=== PATIENT | male | born 1965 | race Caucasian/White ===

== ENCOUNTER 2017-01-06 19:01 | Emergency (ER) | payer MEDICAID ==
[~2017-01-06] VITALS: Ht 172.7 cm; Wt 87.9 kg
[~2017-01-06 19:01] MED LIST: ARIP10TA33 PO; BENZ2AMP4 PO; DIPH25CA61 PO; DIVA500T2 PO; DIVA500T4 PO; FAMO-79 PO; FLUO10CA13 PO; FLUO20CA19 PO; LURA60TA PO; OLAN10TA3 PO; RISP4TAB34 PO
[2017-01-06] MEDS ORDERED: SODIUM CHLORIDE FLUSH 10ML SYR IVF ONE (19:30)
[2017-01-06] MEDS ORDERED: SODIUM CHLORIDE 0.9% 1,000ML IVBOLUS ONE (19:30)
[2017-01-06 19:32] LABS: HEMATOCRIT 52.4 % (39.2-51.8); HEMOGLOBIN 17.6 g/dL (13.7-18.0); WHITE BLOOD COUNT 8.9 x10^3/uL (3.4-10)
[2017-01-06 19:39] LABS: ASPARTATE AMINO TRANSFERASE 12 U/L (15-37); BLOOD UREA NITROGEN 11 mg/dL (7-18)
[2017-01-06 20:26] LABS: IS PT STATUS REG ER OR PRE ER? YES
[2017-01-06 21:15] VITALS: BP 123/92
== END 2017-01-06 21:39 | disposition home or self-care (01) ==
LOC: ED 21:33
DX: R11.0 Nausea (principal); R53.1 Weakness; F25.9 Schizoaffective disorder, unspecified; F31.9 Bipolar disorder, unspecified; J45.909 Unspecified asthma, uncomplicated; K21.9 Gastro-esophageal reflux disease without esophagitis
CPT/HCPCS: 36415; 74020; 76700; 80053; 81001; 83690; 84484; 85025; 87086; 93005; 96360; 96361; 99285; J7030

== ENCOUNTER 2017-02-07 19:42 | Emergency (ER) | payer MEDICAID ==
[~2017-02-07] VITALS: Ht 172.7 cm; Wt 78.4 kg
[2017-02-07] MEDS ORDERED: ONDANSETRON ODT 4 MG PO ONE (20:00)
[2017-02-07] MEDS ORDERED: PLEASE ENTER HEIGHT AND WEIGHT MC SCH (20:00)
[2017-02-07] MEDS ORDERED: BUSP10TA PO (20:06)
[2017-02-07] MEDS ORDERED: ONDANSETRON ODT 4 MG ONE (20:08)
[2017-02-07 20:31] LABS: HEMATOCRIT 52.8 % (39.2-51.8); HEMOGLOBIN 17.9 g/dL (13.7-18.0); WHITE BLOOD COUNT 7.8 x10^3/uL (3.4-10)
[2017-02-07 20:42] LABS: BLOOD UREA NITROGEN 8 mg/dL (7-18)
[2017-02-07 20:46] LABS: ASPARTATE AMINO TRANSFERASE 23 U/L (15-37)
[2017-02-07 21:41] VITALS: BP 117/88
== END 2017-02-07 21:43 | disposition home or self-care (01) ==
LOC: ED 21:03
DX: N30.90 Cystitis, unspecified without hematuria (principal); R19.7 Diarrhea, unspecified; R11.0 Nausea; M94.0 Chondrocostal junction syndrome [Tietze]; K21.9 Gastro-esophageal reflux disease without esophagitis; J45.909 Unspecified asthma, uncomplicated
CPT/HCPCS: 36415; 71020; 80053; 81001; 83690; 85025; 87086; 93005; 99285; Q0162

== ENCOUNTER 2017-05-29 20:23 | Emergency (ER) | payer MEDICAID ==
[~2017-05-29] VITALS: Ht 172.7 cm; Wt 80.0 kg
[~2017-05-29 20:23] MED LIST changes: +BUSP10TA PO
[2017-05-29 20:48] LABS: BASOPHILS # (AUTO) 0.04 x10^3/uL (0-0.1); BASOPHILS % (AUTO) 0 % (0-1); EOSINOPHILS # (AUTO) 0.04 x10^3/uL (0-0.4); EOSINOPHILS % (AUTO) 0 % (1-7); LYMPHOCYTES # (AUTO) 2.35 x10^3/uL (1-3.4); LYMPHOCYTES % (AUTO) 21 % (22-44); MD NO; MEAN CORPUSCULAR HEMOGLOBIN 32.1 pg (27.5-34.5); MEAN CORPUSCULAR HGB CONC 33.9 g/dL (33.2-36.2); MEAN CORPUSCULAR VOLUME 94.9 fL (81-97); MEAN PLATELET VOLUME 8.7 fL (7.4-10.4); MONOCYTES # (AUTO) 0.68 x10^3/uL (0.2-0.8); MONOCYTES % (AUTO) 6 % (2-9); NEUTROPHILS # (AUTO) 8.21 x10^3/uL (1.8-6.8); NEUTROPHILS % (AUTO) 73 % (42-75); PLATELET COUNT 268 x10^3/uL (130-400); RED BLOOD COUNT 5.05 x10^6/uL (4.38-5.82); RED CELL DISTRIBUTION WIDTH 13.6 % (9.4-14.8)
[2017-05-29 20:51] LABS: MICROSCOPIC AUTO
[2017-05-29 20:52] LABS: CULTURE INDICATED? YES
[2017-05-29 21:00] LABS: ALANINE AMINOTRANSFERASE 19 U/L (12-78); ANION GAP 8 mmol/L (5-15); CALCIUM 8.3 mg/dL (8.5-10.1); CHLORIDE 108 mmol/L (98-107); SALICYLATE LEVEL 3.9 mg/dL (2.8-20.0)
[2017-05-29] MEDS ORDERED: LORazepam 1MG TABLET PO ONE (21:00)
[2017-05-29] MEDS ORDERED: PLEASE ENTER HEIGHT AND WEIGHT MC SCH (21:00)
[2017-05-29 21:02] LABS: ALKALINE PHOSPHATASE 126 U/L (45-117); BILIRUBIN,TOTAL 0.6 mg/dL (0.2-1.0); CREATININE 1.14 mg/dL (0.7-1.3); TOTAL PROTEIN 7.2 g/dL (6.4-8.2)
[2017-05-29 21:02] LABS: AMPHETAMINE SCREEN, URINE Negative (Negative); BARBITURATE SCREEN, URINE Negative (Negative); BENZODIAZEPINE SCREEN, URINE Negative (Negative); CANNABINOID SCREEN, URINE Negative (Negative); COCAINE SCREEN, URINE Negative (Negative); METHADONE SCREEN, URINE Negative (Negative); OPIATE SCREEN, URINE Negative (Negative)
[2017-05-29 21:03] LABS: ACETAMINOPHEN < 2 mcg/mL (10-30)
[2017-05-29] MEDS ORDERED: LORazepam 1MG TABLET ONE (21:06)
[2017-05-29] MEDS ORDERED: CEFDINIR 300 MG CAPSULE ONE (22:52)
[2017-05-29] MEDS ORDERED: CEFDINIR 300 MG CAPSULE PO ONE (23:00)
[2017-05-30] MEDS ORDERED: IBUPROFEN 200 MG TABLET PO ONE (03:00)
[2017-05-30] MEDS ORDERED: DIVALPROEX 500 MG TAB.ER.24H PO ONE (03:00)
[2017-05-30] MEDS ORDERED: OLANZAPINE 10 MG TABLET PO ONE (03:00)
[2017-05-30] MEDS ORDERED: IBUPROFEN 200 MG TABLET ONE (03:15)
[2017-05-30] MEDS ORDERED: FLUO20CA19 PO (03:37)
[2017-05-30] MEDS ORDERED: DIVA500T4 PO (03:37)
[2017-05-30] MEDS ORDERED: BUSP10TA PO (03:37)
[2017-05-30] MEDS ORDERED: ONDANSETRON ODT 4 MG PO PRN (05:30)
[2017-05-30] MEDS ORDERED: OLANZAPINE 10 MG TABLET PO SCH (05:30)
[2017-05-30] MEDS ORDERED: CEFD300C37 PO (07:31)
[2017-05-30] MEDS ORDERED: FLUOXETINE 10 MG CAP ONE (10:16)
[2017-05-30] MEDS ORDERED: CEFDINIR 300 MG CAPSULE ONE ×2 (10:16→21:09)
[2017-05-30] MEDS: FLUOXETINE HCL 20 MG CAPSULE PO SCH (11:28)
[2017-05-30] MEDS: CEFDINIR 300 MG CAPSULE PO SCH ×2 (11:28→21:51)
[2017-05-30] MEDS ORDERED: ACETAMINOPHEN 325 MG TABLET ONE (13:00)
[2017-05-30] MEDS: ACETAMINOPHEN 325 MG TABLET PO PRN (13:01)
[2017-05-30] MEDS: OLANZAPINE 10 MG TABLET PO SCH (18:43)
[2017-05-30] MEDS ORDERED: LORazepam 1MG TABLET ONE (21:09)
[2017-05-30] MEDS ORDERED: LORazepam 1MG TABLET PO PRN (21:30)
[2017-05-30] MEDS: DIVALPROEX 500 MG TAB.ER.24H PO SCH (21:51)
[2017-05-31] MEDS ORDERED: FLUOXETINE HCL 20 MG CAPSULE ONE (07:16)
[2017-05-31] MEDS ORDERED: CEFDINIR 300 MG CAPSULE ONE ×2 (07:16→20:53)
[2017-05-31] MEDS: CEFDINIR 300 MG CAPSULE PO SCH ×2 (08:52→21:29)
[2017-05-31] MEDS: FLUOXETINE HCL 20 MG CAPSULE PO SCH (08:52)
[2017-05-31] MEDS ORDERED: ACETAMINOPHEN 325 MG TABLET ONE (13:15)
[2017-05-31] MEDS: ACETAMINOPHEN 325 MG TABLET PO PRN (13:17)
[2017-05-31] MEDS ORDERED: NICOTINE 14MG/24 HR PATCH.TD24 ONE (15:50)
[2017-05-31] MEDS: NICOTINE 14MG/24 HR PATCH.TD24 TD SCH (16:04)
[2017-05-31] MEDS: DIVALPROEX 500 MG TAB.ER.24H PO SCH (21:29)
[2017-05-31] MEDS: OLANZAPINE 10 MG TABLET PO SCH (21:29)
[2017-06-01] MEDS ORDERED: ACETAMINOPHEN 325 MG TABLET ONE ×3 (00:50→13:12)
[2017-06-01] MEDS: ACETAMINOPHEN 325 MG TABLET PO PRN ×2 (00:53→13:16)
[2017-06-01] MEDS ORDERED: FLUOXETINE HCL 20 MG CAPSULE ONE (08:46)
[2017-06-01] MEDS ORDERED: CEFDINIR 300 MG CAPSULE ONE ×2 (08:46→20:59)
[2017-06-01] MEDS: CEFDINIR 300 MG CAPSULE PO SCH ×2 (08:53→21:46)
[2017-06-01] MEDS: FLUOXETINE HCL 20 MG CAPSULE PO SCH (08:53)
[2017-06-01] MEDS ORDERED: NICOTINE 14MG/24 HR PATCH.TD24 ONE (14:56)
[2017-06-01] MEDS: NICOTINE 14MG/24 HR PATCH.TD24 TD SCH (15:10)
[2017-06-01] MEDS: OLANZAPINE 10 MG TABLET PO SCH (21:46)
[2017-06-01] MEDS: DIVALPROEX 500 MG TAB.ER.24H PO SCH (21:46)
[2017-06-02] MEDS ORDERED: ACETAMINOPHEN 325 MG TABLET ONE (00:12)
[2017-06-02] MEDS: ACETAMINOPHEN 325 MG TABLET PO PRN (00:14)
[2017-06-02] MEDS ORDERED: NICOTINE 14MG/24 HR PATCH.TD24 ONE (14:39)
[2017-06-02] MEDS ORDERED: CEFDINIR 300 MG CAPSULE ONE (14:39)
[2017-06-02] MEDS ORDERED: FLUOXETINE HCL 20 MG CAPSULE ONE (14:39)
[2017-06-02] MEDS: FLUOXETINE HCL 20 MG CAPSULE PO SCH (14:44)
[2017-06-02] MEDS: CEFDINIR 300 MG CAPSULE PO SCH (14:44)
[2017-06-02] MEDS: NICOTINE 14MG/24 HR PATCH.TD24 TD SCH (14:45)
[2017-06-02 15:52] VITALS: BP 108/65
[2017-06-02] MEDS ORDERED: CEFD300C37 PO (16:44)
== END 2017-06-02 15:54 | disposition home or self-care (01) ==
LOC: ED 21:13 → EDIP 05-30 02:17 → UNDOADMOB 05-30 02:17 → ED 06-02 15:54
DX: F20.0 Paranoid schizophrenia (principal); F31.9 Bipolar disorder, unspecified; F10.20 Alcohol dependence, uncomplicated; K21.9 Gastro-esophageal reflux disease without esophagitis; J45.909 Unspecified asthma, uncomplicated
CPT/HCPCS: 36415; 80053; 80307; 80329; 81001; 85025; 87086; 99284; G0480

== ENCOUNTER 2017-12-05 16:10 | Emergency (ER) | payer MEDICAID ==
[~2017-12-05] VITALS: Ht 172.7 cm; Wt 80.0 kg
[~2017-12-05 16:10] MED LIST changes: +CEFD300C37 PO
[2017-12-05 16:13] VITALS: BP 129/94
== END 2017-12-05 17:40 | disposition home or self-care (01) ==
LOC: ED 17:34
DX: F25.9 Schizoaffective disorder, unspecified (principal); F31.9 Bipolar disorder, unspecified; K21.9 Gastro-esophageal reflux disease without esophagitis; F10.20 Alcohol dependence, uncomplicated; J45.909 Unspecified asthma, uncomplicated; F17.200 Nicotine dependence, unspecified, uncomplicated; Z76.0 Encounter for issue of repeat prescription; Z72.89 Other problems related to lifestyle
CPT/HCPCS: 99283

== ENCOUNTER 2017-12-22 12:19 | Emergency (ER) | payer MEDICAID | END 2017-12-22 12:38 | disposition left against medical advice (07) | LOC: ED 12:32 | DX: Z53.21 Procedure and treatment not carried out due to patient leaving prior to being seen by health care provider (principal) ==

== ENCOUNTER 2017-12-31 11:00 | Inpatient (IN) | payer MEDICAID ==
[~2017-12-31] VITALS: Ht 172.7 cm; Wt 75.1 kg
[2017-12-31] MEDS ORDERED: SODIUM CHLORIDE 0.9% 1,000 ML IV ONE (11:09)
[2017-12-31] MEDS ORDERED: PANTOPRAZOLE 80 MG in SODIUM CHLORIDE 0.9% 50 ML IVPB ONE (11:09)
[2017-12-31 11:29] LABS: BASOPHILS # (AUTO) 0.06 x10^3/uL (0-0.1); BASOPHILS % (AUTO) 1 % (0-1); EOSINOPHILS # (AUTO) 0.04 x10^3/uL (0-0.4); EOSINOPHILS % (AUTO) 0 % (1-7); LYMPHOCYTES # (AUTO) 1.61 x10^3/uL (1-3.4); LYMPHOCYTES % (AUTO) 14 % (22-44); MD NO; MEAN CORPUSCULAR HEMOGLOBIN 33.3 pg (27.5-34.5); MEAN CORPUSCULAR HGB CONC 34.7 g/dL (33.2-36.2); MEAN CORPUSCULAR VOLUME 95.9 fL (81-97); MEAN PLATELET VOLUME 9.5 fL (7.4-10.4); MONOCYTES # (AUTO) 0.39 x10^3/uL (0.2-0.8); MONOCYTES % (AUTO) 4 % (2-9); NEUTROPHILS # (AUTO) 9.11 x10^3/uL (1.8-6.8); NEUTROPHILS % (AUTO) 81 % (42-75); PLATELET COUNT 319 x10^3/uL (130-400); RED BLOOD COUNT 3.21 x10^6/uL (4.38-5.82); RED CELL DISTRIBUTION WIDTH 14.3 % (9.4-14.8)
[2017-12-31] MEDS ORDERED: SODIUM CHLORIDE FLUSH 10ML SYR IVF ONE (11:30)
[2017-12-31] MEDS ORDERED: PLEASE ENTER HEIGHT AND WEIGHT MC SCH (11:30)
[2017-12-31 11:37] LABS: INTERNATIONAL NORMALIZED RATIO 1.08 (0.93-1.1); PROTHROMBIN TIME 11.2 Seconds (9.6-11.5)
[2017-12-31 11:56] LABS: ALANINE AMINOTRANSFERASE 17 U/L (12-78); ALBUMIN 2.9 g/dL (3.4-5.0); ANION GAP 11 mmol/L (5-15); CHLORIDE 106 mmol/L (98-107); CREATININE 1.03 mg/dL (0.7-1.3)
[2017-12-31 11:58] LABS: ALKALINE PHOSPHATASE 100 U/L (45-117); BILIRUBIN,TOTAL 0.4 mg/dL (0.2-1.0)
[2017-12-31] MEDS ORDERED: LURA60TA PO (12:08)
[2017-12-31] MEDS: PANTOPRAZOLE 80 MG in SODIUM CHLORIDE 0.9% 100 ML IV SCH ×2 (12:15→16:04)
[2017-12-31] MEDS ORDERED: ONDANSETRON 2MG/ML, 2ML IVPush PRN (12:30)
[2017-12-31] MEDS ORDERED: ONDANSETRON ODT 4 MG PO PRN (12:30)
[2017-12-31] MEDS ORDERED: LABETALOL 5MG/ML, 20ML IVPush PRN (12:30)
[2017-12-31] MEDS ORDERED: NICOTINE 7 MG/24 HR PATCH.TD24 TD SCH (12:30)
[2017-12-31] MEDS ORDERED: hydrALAzine 20 MG/ML, 1ML IVPush PRN (12:30)
[2017-12-31 14:33] VITALS: BP 115/73
[2017-12-31] MEDS: SODIUM CHLORIDE 0.9% 1,000 ML IV SCH (16:10)
[2017-12-31 18:35] VITALS: BP 108/77
[2017-12-31] MEDS ORDERED: DIVALPROEX 500 MG TAB.ER.24H PO SCH (21:00)
[2017-12-31] MEDS ORDERED: LURASIDONE 20 MG TABLET PO SCH (21:00)
[2018-01-01] MEDS: SODIUM CHLORIDE 0.9% 1,000 ML IV SCH (01:43)
[2018-01-01 02:19] VITALS: BP 100/57
[2018-01-01 05:25] LABS: BASOPHILS # (AUTO) 0.04 x10^3/uL (0-0.1); BASOPHILS % (AUTO) 1 % (0-1); EOSINOPHILS # (AUTO) 0.11 x10^3/uL (0-0.4); EOSINOPHILS % (AUTO) 1 % (1-7); LYMPHOCYTES # (AUTO) 2.94 x10^3/uL (1-3.4); LYMPHOCYTES % (AUTO) 36 % (22-44); MD NO; MEAN CORPUSCULAR HEMOGLOBIN 33.1 pg (27.5-34.5); MEAN CORPUSCULAR HGB CONC 34.1 g/dL (33.2-36.2); MEAN CORPUSCULAR VOLUME 97.1 fL (81-97); MEAN PLATELET VOLUME 9.7 fL (7.4-10.4); MONOCYTES # (AUTO) 0.36 x10^3/uL (0.2-0.8); MONOCYTES % (AUTO) 4 % (2-9); NEUTROPHILS # (AUTO) 4.82 x10^3/uL (1.8-6.8); NEUTROPHILS % (AUTO) 58 % (42-75); PLATELET COUNT 267 x10^3/uL (130-400); RED BLOOD COUNT 2.69 x10^6/uL (4.38-5.82); RED CELL DISTRIBUTION WIDTH 14.2 % (9.4-14.8)
[2018-01-01 05:30] LABS: CHLORIDE 110 mmol/L (98-107)
[2018-01-01 05:45] LABS: ALANINE AMINOTRANSFERASE 12 U/L (12-78); ALBUMIN 2.5 g/dL (3.4-5.0); ALKALINE PHOSPHATASE 83 U/L (45-117); ANION GAP 10 mmol/L (5-15); BILIRUBIN,TOTAL 0.2 mg/dL (0.2-1.0); TOTAL PROTEIN 5.2 g/dL (6.4-8.2)
[2018-01-01] MEDS ORDERED: PANTOPRAZOLE 40 MG IV IVPush SCH (07:00)
[2018-01-01 07:26] VITALS: BP 94/57
[2018-01-01] MEDS ORDERED: FLUOXETINE HCL 20 MG CAPSULE PO SCH (09:00)
== END 2018-01-01 10:16 | disposition left against medical advice (07) | DRG 378 ==
LOC: ED 11:04 → EDIP 12:17 → 3NE 13:04
PROVIDERS: ADMIT Hospitalist; ATTEND Hospitalist
DX: K92.2 Gastrointestinal hemorrhage, unspecified (principal); E44.0 Moderate protein-calorie malnutrition; R71.0 Precipitous drop in hematocrit; I95.9 Hypotension, unspecified; D72.829 Elevated white blood cell count, unspecified; Z68.25 Body mass index [BMI] 25.0-25.9, adult; F32.9 Major depressive disorder, single episode, unspecified; K59.00 Constipation, unspecified; F17.200 Nicotine dependence, unspecified, uncomplicated; Z53.21 Procedure and treatment not carried out due to patient leaving prior to being seen by health care provider; F25.9 Schizoaffective disorder, unspecified; Z60.2 Problems related to living alone; Z88.8 Allergy status to other drugs, medicaments and biological substances; Z88.1 Allergy status to other antibiotic agents; Z83.3 Family history of diabetes mellitus; Z80.2 Family history of malignant neoplasm of other respiratory and intrathoracic organs; Z81.8 Family history of other mental and behavioral disorders
CPT/HCPCS: 36415; 80053; 85014; 85018; 85025; 85610; 86850; 86900; 96374; G0378; C9113; J7030

== ENCOUNTER 2018-01-01 20:40 | Inpatient (IN) | payer MEDICAID ==
[~2018-01-01] VITALS: Ht 172.7 cm; Wt 79.0 kg
[2018-01-01] MEDS ORDERED: SODIUM CHLORIDE 0.9% 1,000 ML IV ONE (21:10)
[2018-01-01] MEDS ORDERED: PANTOPRAZOLE 80 MG in SODIUM CHLORIDE 0.9% 100 ML IV SCH (21:17)
[2018-01-01] MEDS ORDERED: PANTOPRAZOLE 40 MG IV ONE (21:20)
[2018-01-01 21:23] LABS: MEAN CORPUSCULAR HEMOGLOBIN 32.5 pg (27.5-34.5); MEAN CORPUSCULAR VOLUME 95.3 fL (81-97); MEAN PLATELET VOLUME 9.3 fL (7.4-10.4); PLATELET COUNT 314 x10^3/uL (130-400); RED BLOOD COUNT 2.66 x10^6/uL (4.38-5.82); RED CELL DISTRIBUTION WIDTH 14.5 % (9.4-14.8)
[2018-01-01] MEDS ORDERED: PANTOPRAZOLE 40 MG IV IVPush ONE (21:30)
[2018-01-01] MEDS ORDERED: SODIUM CHLORIDE FLUSH 10ML SYR IVF ONE (21:30)
[2018-01-01 21:34] LABS: INTERNATIONAL NORMALIZED RATIO 1.01 (0.93-1.1); PROTHROMBIN TIME 10.5 Seconds (9.6-11.5)
[2018-01-01 21:36] LABS: ALANINE AMINOTRANSFERASE 12 U/L (12-78); ALBUMIN 2.8 g/dL (3.4-5.0); ANION GAP 6 mmol/L (5-15); CALCIUM 8.1 mg/dL (8.5-10.1); CHLORIDE 111 mmol/L (98-107); CREATININE 0.99 mg/dL (0.7-1.3)
[2018-01-01 21:38] LABS: ALKALINE PHOSPHATASE 95 U/L (45-117); BILIRUBIN,TOTAL 0.2 mg/dL (0.2-1.0); TOTAL PROTEIN 5.7 g/dL (6.4-8.2)
[2018-01-01 21:46] LABS: BASOPHILS # (AUTO) 0.04 x10^3/uL (0-0.1); BASOPHILS % (AUTO) 1 % (0-1); EOSINOPHILS # (AUTO) 0.14 x10^3/uL (0-0.4); EOSINOPHILS % (AUTO) 2 % (1-7); LYMPHOCYTES # (AUTO) 2.74 x10^3/uL (1-3.4); LYMPHOCYTES % (AUTO) 33 % (22-44); MD SCAN; MONOCYTES # (AUTO) 0.33 x10^3/uL (0.2-0.8); MONOCYTES % (AUTO) 4 % (2-9); NEUTROPHILS % (AUTO) 61 % (42-75)
[2018-01-01] MEDS ORDERED: OMNIPAQUE 350 MG/ML, 100ML BOTTLE ONE (22:05)
[2018-01-01] MEDS ORDERED: SODIUM CHLORIDE 0.9% 1,000ML IVBOLUS ONE (22:30)
[2018-01-01 22:43] VITALS: BP 75/49
[2018-01-01 22:49] VITALS: BP 62/37
[2018-01-01] MEDS ORDERED: ZIPRASIDONE 20 MG INJ IM ONE ×2 (22:54→23:00)
[2018-01-01 22:56] VITALS: BP 81/49
[2018-01-01 23:55] VITALS: BP 80/51
[2018-01-01] MEDS ORDERED: SODIUM CHLORIDE 0.9% 1,000 ML IV SCH (23:59)
[2018-01-02] VITALS: BP 89/64
[2018-01-02 00:05] VITALS: BP 87/62
[2018-01-02 02:34] VITALS: BP 86/51
[2018-01-02] MEDS ORDERED: SODIUM CHLORIDE 0.9% 1,000ML IVBOLUS ONE (03:00)
[2018-01-02 04:00] VITALS: BP 107/71
[2018-01-02 04:32] LABS: ANION GAP 6 mmol/L (5-15); CALCIUM 6.8 mg/dL (8.5-10.1); CHLORIDE 118 mmol/L (98-107)
[2018-01-02 04:38] LABS: BASOPHILS # (AUTO) 0.04 x10^3/uL (0-0.1); BASOPHILS % (AUTO) 1 % (0-1); EOSINOPHILS # (AUTO) 0.11 x10^3/uL (0-0.4); EOSINOPHILS % (AUTO) 2 % (1-7); LYMPHOCYTES # (AUTO) 2.73 x10^3/uL (1-3.4); LYMPHOCYTES % (AUTO) 49 % (22-44); MD NO; MEAN CORPUSCULAR HEMOGLOBIN 31.4 pg (27.5-34.5); MEAN CORPUSCULAR HGB CONC 33.4 g/dL (33.2-36.2); MEAN CORPUSCULAR VOLUME 94.2 fL (81-97); MEAN PLATELET VOLUME 9.6 fL (7.4-10.4); MONOCYTES # (AUTO) 0.24 x10^3/uL (0.2-0.8); MONOCYTES % (AUTO) 4 % (2-9); NEUTROPHILS % (AUTO) 44 % (42-75); PLATELET COUNT 222 x10^3/uL (130-400); RED BLOOD COUNT 2.92 x10^6/uL (4.38-5.82); RED CELL DISTRIBUTION WIDTH 16.6 % (9.4-14.8)
[2018-01-02] MEDS ORDERED: PANTOPRAZOLE 80 MG in SODIUM CHLORIDE 0.9% 100 ML IV SCH (05:30)
[2018-01-02] MEDS ORDERED: ALBUTEROL SULFATE 2.5 MG/3 ML ONE (05:38)
[2018-01-02] MEDS ORDERED: ALBUTEROL SULFATE 2.5 MG/3 ML NPPB PRN (06:00)
[2018-01-02 09:08] VITALS: BP 122/81
== END 2018-01-02 11:55 | disposition left against medical advice (07) | DRG 377 ==
LOC: ED 21:30 → EDIP 23:49 → CCU 01-02 00:46 → 4WST 01-02 08:52
PROVIDERS: ADMIT Hospitalist; ATTEND Hospitalist
PROC: 30233N1 Transfusion of Nonautologous Red Blood Cells into Peripheral Vein, Percutaneous Approach (ICD-10-PCS; principal; 2018-01-01)
DX: K92.2 Gastrointestinal hemorrhage, unspecified (principal); E43 Unspecified severe protein-calorie malnutrition; D62 Acute posthemorrhagic anemia; Z68.26 Body mass index [BMI] 26.0-26.9, adult; F25.9 Schizoaffective disorder, unspecified; F31.9 Bipolar disorder, unspecified; K21.9 Gastro-esophageal reflux disease without esophagitis; F17.210 Nicotine dependence, cigarettes, uncomplicated; Z53.21 Procedure and treatment not carried out due to patient leaving prior to being seen by health care provider; Z88.8 Allergy status to other drugs, medicaments and biological substances
CPT/HCPCS: 36415; 99291; J7613; 36430; 74177; 80048; 80053; 83690; 85025; 85610; 85730; 86850; 86900; 86923; 87081; 93005; 96361; 96372; 96374; J3486; Q9967; C9113; J7030; P9016

== ENCOUNTER 2018-01-03 04:38 | Emergency (ER) | payer MEDICAID ==
[~2018-01-03] VITALS: Ht 172.7 cm; Wt 75.0 kg
[2018-01-03 05:50] VITALS: BP 118/76
[2018-01-03 05:52] LABS: ALANINE AMINOTRANSFERASE 13 U/L (12-78); ANION GAP 9 mmol/L (5-15); CALCIUM 8.1 mg/dL (8.5-10.1); CHLORIDE 109 mmol/L (98-107); CREATININE 0.94 mg/dL (0.7-1.3)
[2018-01-03 05:54] LABS: ALKALINE PHOSPHATASE 96 U/L (45-117); BILIRUBIN,TOTAL 0.5 mg/dL (0.2-1.0); TOTAL PROTEIN 5.8 g/dL (6.4-8.2)
[2018-01-03 06:06] LABS: BASOPHILS # (AUTO) 0.04 x10^3/uL (0-0.1); BASOPHILS % (AUTO) 1 % (0-1); EOSINOPHILS # (AUTO) 0.11 x10^3/uL (0-0.4); EOSINOPHILS % (AUTO) 2 % (1-7); LYMPHOCYTES # (AUTO) 1.99 x10^3/uL (1-3.4); LYMPHOCYTES % (AUTO) 32 % (22-44); MD NO; MEAN CORPUSCULAR HEMOGLOBIN 31.6 pg (27.5-34.5); MEAN CORPUSCULAR HGB CONC 33.9 g/dL (33.2-36.2); MEAN CORPUSCULAR VOLUME 93.2 fL (81-97); MEAN PLATELET VOLUME 9.7 fL (7.4-10.4); MONOCYTES # (AUTO) 0.32 x10^3/uL (0.2-0.8); MONOCYTES % (AUTO) 5 % (2-9); NEUTROPHILS # (AUTO) 3.69 x10^3/uL (1.8-6.8); NEUTROPHILS % (AUTO) 60 % (42-75); PLATELET COUNT 295 x10^3/uL (130-400); RED BLOOD COUNT 3.32 x10^6/uL (4.38-5.82); RED CELL DISTRIBUTION WIDTH 16.9 % (9.4-14.8)
== END 2018-01-03 06:29 | disposition home or self-care (01) ==
LOC: ED 05:29
DX: R10.11 Right upper quadrant pain (principal)
CPT/HCPCS: 36415; 80053; 83690; 85025; 86850; 86900; 93005; 99285

== ENCOUNTER 2018-01-17 18:47 | Emergency (ER) | payer MEDICAID ==
[~2018-01-17] VITALS: Ht 172.7 cm; Wt 76.0 kg
[2018-01-17 19:39] LABS: BASOPHILS # (AUTO) 0.07 x10^3/uL (0-0.1); BASOPHILS % (AUTO) 1 % (0-1); EOSINOPHILS # (AUTO) 0.12 x10^3/uL (0-0.4); EOSINOPHILS % (AUTO) 1 % (1-7); LYMPHOCYTES # (AUTO) 2.91 x10^3/uL (1-3.4); LYMPHOCYTES % (AUTO) 30 % (22-44); MD NO; MEAN CORPUSCULAR HEMOGLOBIN 32.2 pg (27.5-34.5); MEAN CORPUSCULAR HGB CONC 33.8 g/dL (33.2-36.2); MEAN CORPUSCULAR VOLUME 95.3 fL (81-97); MEAN PLATELET VOLUME 9.1 fL (7.4-10.4); MONOCYTES # (AUTO) 0.86 x10^3/uL (0.2-0.8); MONOCYTES % (AUTO) 9 % (2-9); NEUTROPHILS # (AUTO) 5.71 x10^3/uL (1.8-6.8); NEUTROPHILS % (AUTO) 59 % (42-75); PLATELET COUNT 329 x10^3/uL (130-400); RED BLOOD COUNT 3.97 x10^6/uL (4.38-5.82); RED CELL DISTRIBUTION WIDTH 16.3 % (9.4-14.8)
[2018-01-17 19:47] LABS: ALBUMIN 3.2 g/dL (3.4-5.0); ANION GAP 9 mmol/L (5-15); CALCIUM 8.4 mg/dL (8.5-10.1); CHLORIDE 106 mmol/L (98-107)
[2018-01-17 19:50] LABS: ALANINE AMINOTRANSFERASE 13 U/L (12-78); ALKALINE PHOSPHATASE 127 U/L (45-117); BILIRUBIN,TOTAL 0.3 mg/dL (0.2-1.0); CREATININE 1.14 mg/dL (0.7-1.3); TOTAL PROTEIN 6.7 g/dL (6.4-8.2)
[2018-01-17 20:17] VITALS: BP 111/68
== END 2018-01-17 20:47 | disposition home or self-care (01) ==
LOC: ED 19:27
DX: R10.11 Right upper quadrant pain (principal); R10.13 Epigastric pain; R10.12 Left upper quadrant pain; F31.9 Bipolar disorder, unspecified; F10.20 Alcohol dependence, uncomplicated; K21.9 Gastro-esophageal reflux disease without esophagitis; J45.909 Unspecified asthma, uncomplicated; F25.9 Schizoaffective disorder, unspecified
CPT/HCPCS: 36415; 80053; 83690; 85025; 86677; 99284

== ENCOUNTER 2018-01-20 20:44 | Emergency (ER) | payer MEDICAID ==
[~2018-01-20] VITALS: Ht 172.7 cm; Wt 75.0 kg
[2018-01-20 21:51] LABS: BASOPHILS % (AUTO) 1 % (0-1); EOSINOPHILS # (AUTO) 0.13 x10^3/uL (0-0.4); EOSINOPHILS % (AUTO) 2 % (1-7); LYMPHOCYTES # (AUTO) 3.15 x10^3/uL (1-3.4); LYMPHOCYTES % (AUTO) 35 % (22-44); MD NO; MEAN CORPUSCULAR HGB CONC 33.5 g/dL (33.2-36.2); MEAN CORPUSCULAR VOLUME 95.4 fL (81-97); MEAN PLATELET VOLUME 9.1 fL (7.4-10.4); MONOCYTES # (AUTO) 0.68 x10^3/uL (0.2-0.8); MONOCYTES % (AUTO) 8 % (2-9); NEUTROPHILS # (AUTO) 4.91 x10^3/uL (1.8-6.8); NEUTROPHILS % (AUTO) 55 % (42-75); PLATELET COUNT 305 x10^3/uL (130-400); RED BLOOD COUNT 4.17 x10^6/uL (4.38-5.82); RED CELL DISTRIBUTION WIDTH 15.4 % (9.4-14.8)
[2018-01-20 21:58] LABS: CULTURE INDICATED? YES; MICROSCOPIC INDICATED
[2018-01-20 22:02] LABS: ALANINE AMINOTRANSFERASE 14 U/L (12-78); ANION GAP 9 mmol/L (5-15); CALCIUM 8.6 mg/dL (8.5-10.1); CHLORIDE 105 mmol/L (98-107); CREATININE 1.23 mg/dL (0.7-1.3); SALICYLATE LEVEL 2.5 mg/dL (2.8-20.0)
[2018-01-20 22:04] LABS: ACETAMINOPHEN < 2 mcg/mL (10-30); ALKALINE PHOSPHATASE 131 U/L (45-117); BILIRUBIN,TOTAL 0.3 mg/dL (0.2-1.0); TOTAL PROTEIN 6.8 g/dL (6.4-8.2)
[2018-01-20 22:09] LABS: AMPHETAMINE SCREEN, URINE Negative (Negative); BARBITURATE SCREEN, URINE Negative (Negative); CANNABINOID SCREEN, URINE Negative (Negative)
[2018-01-20 22:11] LABS: BENZODIAZEPINE SCREEN, URINE Negative (Negative); COCAINE SCREEN, URINE Negative (Negative); METHADONE SCREEN, URINE Negative (Negative); OPIATE SCREEN, URINE Negative (Negative)
[2018-01-20 22:45] VITALS: BP 96/65
== END 2018-01-20 23:01 | disposition home or self-care (01) ==
LOC: ED 21:44
DX: K27.3 Acute peptic ulcer, site unspecified, without hemorrhage or perforation (principal); R10.12 Left upper quadrant pain; K21.9 Gastro-esophageal reflux disease without esophagitis; F17.210 Nicotine dependence, cigarettes, uncomplicated
CPT/HCPCS: 36415; 80053; 80307; 80329; 81001; 83690; 85025; 87086; 99284; G0480

== ENCOUNTER 2018-02-16 16:10 | Emergency (ER) | payer MEDICAID ==
[~2018-02-16] VITALS: Ht 172.7 cm; Wt 75.0 kg
[2018-02-16] MEDS ORDERED: SODIUM CHLORIDE FLUSH 10ML SYR IVF ONE (16:30)
[2018-02-16] MEDS ORDERED: METOCLOPRAMIDE 5 MG/ML, 2ML IVPush ONE (16:30)
[2018-02-16] MEDS ORDERED: METOCLOPRAMIDE 5 MG/ML, 2ML ONE (16:30)
[2018-02-16] MEDS ORDERED: MORPHINE SULFATE 4 MG/ML, 1ML ONE (16:40)
[2018-02-16 16:55] LABS: BASOPHILS # (AUTO) 0.05 x10^3/uL (0-0.1); BASOPHILS % (AUTO) 1 % (0-1); EOSINOPHILS # (AUTO) 0.03 x10^3/uL (0-0.4); EOSINOPHILS % (AUTO) 0 % (1-7); LYMPHOCYTES # (AUTO) 2.78 x10^3/uL (1-3.4); LYMPHOCYTES % (AUTO) 28 % (22-44); MD NO; MEAN CORPUSCULAR HEMOGLOBIN 31.5 pg (27.5-34.5); MEAN CORPUSCULAR HGB CONC 33.7 g/dL (33.2-36.2); MEAN CORPUSCULAR VOLUME 93.4 fL (81-97); MEAN PLATELET VOLUME 8.6 fL (7.4-10.4); MONOCYTES # (AUTO) 0.77 x10^3/uL (0.2-0.8); MONOCYTES % (AUTO) 8 % (2-9); NEUTROPHILS # (AUTO) 6.35 x10^3/uL (1.8-6.8); NEUTROPHILS % (AUTO) 64 % (42-75); PLATELET COUNT 295 x10^3/uL (130-400); RED BLOOD COUNT 4.63 x10^6/uL (4.38-5.82); RED CELL DISTRIBUTION WIDTH 14.7 % (9.4-14.8)
[2018-02-16] MEDS ORDERED: MORPHINE SULFATE 4 MG/ML, 1ML IVPush PRN (17:00)
[2018-02-16 17:03] LABS: ALANINE AMINOTRANSFERASE 17 U/L (12-78); ALBUMIN 3.6 g/dL (3.4-5.0); ANION GAP 10 mmol/L (5-15); CHLORIDE 103 mmol/L (98-107); CREATININE 1.14 mg/dL (0.7-1.3)
[2018-02-16 17:06] LABS: ALKALINE PHOSPHATASE 94 U/L (45-117); BILIRUBIN,TOTAL 0.4 mg/dL (0.2-1.0); TOTAL PROTEIN 7.2 g/dL (6.4-8.2)
[2018-02-16] MEDS ORDERED: ALBU8.5H8 INH (17:08)
[2018-02-16 17:41] LABS: CULTURE INDICATED? NO; MICROSCOPIC NOT IND
[2018-02-16] MEDS ORDERED: OMNIPAQUE 350 MG/ML, 100ML BOTTLE ONE (17:41)
[2018-02-16 18:40] VITALS: BP 106/72
== END 2018-02-16 18:44 | disposition home or self-care (01) ==
LOC: ED 18:05
DX: R10.13 Epigastric pain (principal); R11.0 Nausea; F20.9 Schizophrenia, unspecified; F31.9 Bipolar disorder, unspecified; K21.9 Gastro-esophageal reflux disease without esophagitis; J45.909 Unspecified asthma, uncomplicated; F17.210 Nicotine dependence, cigarettes, uncomplicated
CPT/HCPCS: 36415; 74177; 80053; 81003; 83690; 85025; 96374; 96375; 99285; J2765; Q9967

== ENCOUNTER 2018-03-08 16:30 | Emergency (ER) | payer MEDICAID ==
[~2018-03-08] VITALS: Ht 172.7 cm; Wt 75.0 kg
[~2018-03-08 16:30] MED LIST changes: +ALBU8.5H8 INH
[2018-03-08 17:21] LABS: BASOPHILS # (AUTO) 0.07 x10^3/uL (0-0.1); BASOPHILS % (AUTO) 1 % (0-1); EOSINOPHILS # (AUTO) 0.15 x10^3/uL (0-0.4); EOSINOPHILS % (AUTO) 2 % (1-7); LYMPHOCYTES # (AUTO) 2.66 x10^3/uL (1-3.4); LYMPHOCYTES % (AUTO) 40 % (22-44); MD NO; MEAN CORPUSCULAR HEMOGLOBIN 31.8 pg (27.5-34.5); MEAN CORPUSCULAR HGB CONC 33.9 g/dL (33.2-36.2); MEAN PLATELET VOLUME 9.5 fL (7.4-10.4); MONOCYTES # (AUTO) 0.49 x10^3/uL (0.2-0.8); MONOCYTES % (AUTO) 7 % (2-9); NEUTROPHILS # (AUTO) 3.26 x10^3/uL (1.8-6.8); NEUTROPHILS % (AUTO) 49 % (42-75); PLATELET COUNT 227 x10^3/uL (130-400); RED CELL DISTRIBUTION WIDTH 13.9 % (9.4-14.8)
[2018-03-08 17:25] LABS: INTERNATIONAL NORMALIZED RATIO 1.04 (0.93-1.1)
[2018-03-08 17:28] LABS: ALANINE AMINOTRANSFERASE 20 U/L (12-78); ALBUMIN 3.4 g/dL (3.4-5.0); ANION GAP 9 mmol/L (5-15); CALCIUM 8.7 mg/dL (8.5-10.1); CHLORIDE 104 mmol/L (98-107); CREATININE 1.23 mg/dL (0.7-1.3)
[2018-03-08 17:30] LABS: ALKALINE PHOSPHATASE 88 U/L (45-117); BILIRUBIN,TOTAL 0.2 mg/dL (0.2-1.0); TOTAL PROTEIN 6.8 g/dL (6.4-8.2)
[2018-03-08 18:30] VITALS: BP 108/63
== END 2018-03-08 18:33 | disposition home or self-care (01) ==
LOC: ED 16:37
DX: R10.13 Epigastric pain (principal); K21.9 Gastro-esophageal reflux disease without esophagitis; F17.200 Nicotine dependence, unspecified, uncomplicated; J45.909 Unspecified asthma, uncomplicated
CPT/HCPCS: 36415; 74021; 80053; 85025; 85610; 99284

== ENCOUNTER 2018-05-12 11:09 | Emergency (ER) | payer MEDICAID ==
[~2018-05-12] VITALS: Ht 172.7 cm; Wt 71.8 kg
[2018-05-12] MEDS ORDERED: MAALOX/HYOSCYAMINE/LIDOCAINE 45 ML BTL ONE (11:43)
[2018-05-12 11:55] LABS: BASOPHILS # (AUTO) 0.05 x10^3/uL (0-0.1); BASOPHILS % (AUTO) 1 % (0-1); EOSINOPHILS # (AUTO) 0.05 x10^3/uL (0-0.4); EOSINOPHILS % (AUTO) 1 % (1-7); LYMPHOCYTES # (AUTO) 2.26 x10^3/uL (1-3.4); LYMPHOCYTES % (AUTO) 27 % (22-44); MD NO; MEAN CORPUSCULAR HEMOGLOBIN 32.1 pg (27.5-34.5); MEAN CORPUSCULAR HGB CONC 34.3 g/dL (33.2-36.2); MEAN CORPUSCULAR VOLUME 93.6 fL (81-97); MEAN PLATELET VOLUME 8.1 fL (7.4-10.4); MONOCYTES % (AUTO) 7 % (2-9); NEUTROPHILS # (AUTO) 5.35 x10^3/uL (1.8-6.8); NEUTROPHILS % (AUTO) 64 % (42-75); PLATELET COUNT 251 x10^3/uL (130-400); RED BLOOD COUNT 4.83 x10^6/uL (4.38-5.82); RED CELL DISTRIBUTION WIDTH 15.2 % (9.4-14.8)
[2018-05-12] MEDS ORDERED: MAALOX/HYOSCYAMINE/LIDOCAINE 45 ML BTL PO ONE (12:00)
[2018-05-12 12:06] LABS: ALANINE AMINOTRANSFERASE 61 U/L (12-78); ALBUMIN 3.5 g/dL (3.4-5.0); ANION GAP 6 mmol/L (5-15); CHLORIDE 104 mmol/L (98-107); CREATININE 1.42 mg/dL (0.7-1.3)
[2018-05-12 12:08] LABS: ALKALINE PHOSPHATASE 113 U/L (45-117); BILIRUBIN,TOTAL 0.5 mg/dL (0.2-1.0)
[2018-05-12 13:30] VITALS: BP 141/89
[2018-05-12 13:47] LABS: MICROSCOPIC NOT IND
[2018-05-12 13:53] LABS: CULTURE INDICATED? NO
== END 2018-05-12 13:32 | disposition home or self-care (01) ==
LOC: ED 13:26
DX: K25.7 Chronic gastric ulcer without hemorrhage or perforation (principal); K21.0 Gastro-esophageal reflux disease with esophagitis; J32.0 Chronic maxillary sinusitis; J45.909 Unspecified asthma, uncomplicated; F17.200 Nicotine dependence, unspecified, uncomplicated
CPT/HCPCS: 36415; 80053; 81003; 83690; 85025; 86677; 99283

== ENCOUNTER 2018-05-23 15:52 | Emergency (ER) | payer MEDICAID ==
[~2018-05-23] VITALS: Ht 172.7 cm; Wt 74.9 kg
[2018-05-23 16:05] VITALS: BP 115/82
--- NOTE | 2018-05-23 16:27 | NUR ---
ERP AT BS, EXPLAINED TO PT THAT PSYCH MEDS CAN'T BE ADJUSTED IN ER. PT PLEASANT, COOPERATIVE.
--- NOTE | 2018-05-23 16:53 | NUR ---
Patient/Caregiver given discharge instructions and they have confirmed that they understand the instructions. Patient ambulatory with steady gait.
== END 2018-05-23 16:54 | disposition home or self-care (01) ==
LOC: ED 16:31
DX: F51.04 Psychophysiologic insomnia (principal); Z76.0 Encounter for issue of repeat prescription; F20.9 Schizophrenia, unspecified; F31.9 Bipolar disorder, unspecified; K21.9 Gastro-esophageal reflux disease without esophagitis; J45.909 Unspecified asthma, uncomplicated
CPT/HCPCS: 82962; 99283

== ENCOUNTER 2018-06-08 10:08 | Emergency (ER) | payer MEDICAID ==
[~2018-06-08] VITALS: Ht 172.7 cm; Wt 78.0 kg
[2018-06-08 10:15] VITALS: BP 157/93
== END 2018-06-08 11:12 | disposition home or self-care (01) ==
LOC: ED 11:09
DX: F31.9 Bipolar disorder, unspecified (principal); Z76.0 Encounter for issue of repeat prescription; K21.9 Gastro-esophageal reflux disease without esophagitis; J45.909 Unspecified asthma, uncomplicated; F25.9 Schizoaffective disorder, unspecified
CPT/HCPCS: 99283

== ENCOUNTER 2018-10-02 02:29 | Emergency (ER) | payer MEDICAID ==
[~2018-10-02] VITALS: Ht 177.8 cm; Wt 93.0 kg
[2018-10-02] MEDS ORDERED: ARIP2TAB2 PO (02:56)
[2018-10-02] MEDS ORDERED: CARI1CAP PO (02:56)
[2018-10-02] MEDS ORDERED: HYDR25CA PO (02:56)
[2018-10-02] MEDS ORDERED: BENZ2AMP4 PO (02:56)
--- NOTE | 2018-10-02 03:10 | NUR ---
[facility], PROVIDED PT WITH WARM BLANKET, MONITORS IN PLACE, SIDERAILS UP X2, CALL LIGHT WITHIN REACH. AWAITING URINE AND LAB RESULTS
[2018-10-02 03:24] LABS: MICROSCOPIC INDICATED
[2018-10-02 03:25] LABS: CULTURE INDICATED? YES
[2018-10-02 03:42] LABS: BASOPHILS # (AUTO) 0.15 x10^3/uL (0-0.1); BASOPHILS % (AUTO) 2 % (0-1); EOSINOPHILS # (AUTO) 0.19 x10^3/uL (0-0.4); EOSINOPHILS % (AUTO) 3 % (1-7); LYMPHOCYTES # (AUTO) 2.31 x10^3/uL (1-3.4); LYMPHOCYTES % (AUTO) 33 % (22-44); MD NO; MEAN CORPUSCULAR HEMOGLOBIN 32.7 pg (27.5-34.5); MEAN CORPUSCULAR HGB CONC 33.5 g/dL (33.2-36.2); MEAN CORPUSCULAR VOLUME 97.5 fL (81-97); MONOCYTES # (AUTO) 0.63 x10^3/uL (0.2-0.8); MONOCYTES % (AUTO) 9 % (2-9); NEUTROPHILS # (AUTO) 3.64 x10^3/uL (1.8-6.8); NEUTROPHILS % (AUTO) 53 % (42-75); PLATELET COUNT 255 x10^3/uL (130-400); RED BLOOD COUNT 4.39 x10^6/uL (4.38-5.82)
[2018-10-02 03:52] LABS: ANION GAP 5 mmol/L (5-15); CALCIUM 8.1 mg/dL (8.5-10.1); CHLORIDE 106 mmol/L (98-107)
[2018-10-02 03:56] LABS: ALANINE AMINOTRANSFERASE 23 U/L (12-78); ALKALINE PHOSPHATASE 83 U/L (45-117); BILIRUBIN,TOTAL 0.3 mg/dL (0.2-1.0); CREATININE 1.25 mg/dL (0.7-1.3)
--- NOTE | 2018-10-02 04:11 | NUR ---
PT RESTING WITH EES CLOSED, NADN, RESPIRTATIONS EVEN AND UNLABORED, MONITORS IN PLACE, CALL LIGHT WITHIN REACH. AWAITING CT
[2018-10-02] MEDS ORDERED: CIPROFLOXACIN 500 MG TABLET ONE (05:12)
[2018-10-02 05:29] VITALS: BP 120/75
[2018-10-02] MEDS ORDERED: CIPROFLOXACIN 500 MG TABLET PO ONE (05:30)
== END 2018-10-02 05:54 | disposition home or self-care (01) ==
LOC: ED 05:30
DX: N30.01 Acute cystitis with hematuria (principal); K21.9 Gastro-esophageal reflux disease without esophagitis
CPT/HCPCS: 36415; 74176; 80053; 81001; 85025; 87077; 87086; 87186; 99284

== ENCOUNTER 2018-11-12 11:25 | Inpatient (IN) | payer MEDICAID ==
[~2018-11-12] VITALS: Ht 172.7 cm; Wt 79.5 kg
[~2018-11-12 11:25] MED LIST changes: +ARIP2TAB2 PO; +CARI1CAP PO; +HYDR25CA PO
[2018-11-12] MEDS ORDERED: POLYETHYLENE GLYCOL 17 GM PACKET PO PRN (12:00)
[2018-11-12] MEDS ORDERED: DOCUSATE 100 MG CAPSULE PO PRN (12:00)
[2018-11-12] MEDS ORDERED: ACETAMINOPHEN 325 MG TABLET PO PRN (12:00)
[2018-11-12] MEDS ORDERED: ONDANSETRON ODT 4 MG PO PRN (12:00)
[2018-11-12] MEDS ORDERED: BISACODYL 10 MG SUPP PR PRN (12:00)
[2018-11-12 13:33] VITALS: BP 126/88
[2018-11-12 13:54] VITALS: BP 126/88
[2018-11-12] MEDS ORDERED: PLEASE ENTER HEIGHT AND WEIGHT MC SCH (14:00)
[2018-11-12 14:13] VITALS: BP 126/88
[2018-11-12] MEDS: LORazepam 1MG TABLET PO PRN (14:22)
[2018-11-12] MEDS ORDERED: CALCIUM CARBONATE 500 MG TAB.CHEW PO PRN (15:30)
[2018-11-12 15:52] LABS: BASOPHILS # (AUTO) 0.04 x10^3/uL (0-0.1); BASOPHILS % (AUTO) 1 % (0-1); EOSINOPHILS % (AUTO) 1 % (1-7); LYMPHOCYTES # (AUTO) 2.24 x10^3/uL (1-3.4); LYMPHOCYTES % (AUTO) 29 % (22-44); MD NO; MEAN CORPUSCULAR HEMOGLOBIN 31.5 pg (27.5-34.5); MEAN CORPUSCULAR HGB CONC 33.2 g/dL (33.2-36.2); MEAN CORPUSCULAR VOLUME 95.1 fL (81-97); MONOCYTES # (AUTO) 0.57 x10^3/uL (0.2-0.8); MONOCYTES % (AUTO) 7 % (2-9); NEUTROPHILS # (AUTO) 4.75 x10^3/uL (1.8-6.8); NEUTROPHILS % (AUTO) 62 % (42-75); PLATELET COUNT 245 x10^3/uL (130-400); RED BLOOD COUNT 5.18 x10^6/uL (4.38-5.82); RED CELL DISTRIBUTION WIDTH 14.1 % (9.4-14.8)
[2018-11-12 16:03] LABS: ALBUMIN 3.7 g/dL (3.4-5.0); ANION GAP 5 mmol/L (5-15); CALCIUM 8.8 mg/dL (8.5-10.1); CHLORIDE 104 mmol/L (98-107)
[2018-11-12 16:26] LABS: ALANINE AMINOTRANSFERASE 16 U/L (12-78); ALKALINE PHOSPHATASE 102 U/L (45-117); BILIRUBIN,TOTAL 0.8 mg/dL (0.2-1.0); CHOL/HDL RATIO 7.1; CHOLESTEROL, TOTAL 220 mg/dL (140-239); CREATININE 1.35 mg/dL (0.7-1.3); FREE T4 (FREE THYROXINE) 1.16 ng/dL (0.76-1.46); HDL CHOL % 14 % (26-37); HDL CHOLESTEROL (DIRECT) 31 mg/dL (40-60); LDL CHOLESTEROL,CALCULATED 144 mg/dL (54-169); LDL/HDL RATIO 4.6 (0.5-3.0); TOTAL PROTEIN 7.2 g/dL (6.4-8.2); TRIGLYCERIDES 226 mg/dL (50-200); VLDL CHOLESTEROL 45 mg/dL (0-25)
[2018-11-12] MEDS ORDERED: ARIP15TA3 PO (17:32)
[2018-11-12] MEDS ORDERED: BENZ2TAB6 PO (17:34)
[2018-11-12 20:00] VITALS: BP 120/80
[2018-11-13 07:16] VITALS: BP 109/80
[2018-11-13 07:41] LABS: CULTURE INDICATED? YES; MICROSCOPIC INDICATED
[2018-11-13] MEDS: NICOTINE 21 MG/24 HR PATCH.TD24 TD SCH (08:48)
[2018-11-13] MEDS: ARIPIPRAZOLE 15 MG TABLET PO SCH (17:25)
[2018-11-13 19:46] VITALS: BP 125/76
[2018-11-13] MEDS: DIVALPROEX 500 MG TAB.ER.24H PO SCH (20:13)
[2018-11-13] MEDS: HYDROXYZINE PAMOATE 50MG CAP PO SCH (20:14)
[2018-11-13] MEDS: LORazepam 1MG TABLET PO PRN (22:57)
[2018-11-14 07:38] VITALS: BP 130/80
[2018-11-14] MEDS: FLUOXETINE HCL 20 MG CAPSULE PO SCH (08:45)
[2018-11-14] MEDS: ARIPIPRAZOLE 15 MG TABLET PO SCH (08:45)
[2018-11-14] MEDS: NICOTINE 21 MG/24 HR PATCH.TD24 TD SCH (08:45)
[2018-11-14 19:53] VITALS: BP 136/94
[2018-11-14] MEDS: HYDROXYZINE PAMOATE 50MG CAP PO SCH (20:05)
[2018-11-14] MEDS: DIVALPROEX 500 MG TAB.ER.24H PO SCH (20:05)
[2018-11-14] MEDS: LORazepam 1MG TABLET PO PRN (20:05)
[2018-11-15 07:33] VITALS: BP 137/93
[2018-11-15] MEDS: NICOTINE 21 MG/24 HR PATCH.TD24 TD SCH (09:20)
[2018-11-15] MEDS: ARIPIPRAZOLE 15 MG TABLET PO SCH (09:20)
[2018-11-15] MEDS: FLUOXETINE HCL 20 MG CAPSULE PO SCH (09:20)
[2018-11-15] MEDS: LORazepam 1MG TABLET PO PRN (12:57)
[2018-11-15] MEDS ORDERED: HYDROXYZINE PAMOATE 50MG CAP PO PRN (16:00)
[2018-11-15 19:53] VITALS: BP 106/71
[2018-11-15] MEDS: SULFAMETH./TRIMETHOPRIM DS 800MG/160MG TABLET PO SCH (20:43)
[2018-11-15] MEDS: DIVALPROEX 500 MG TAB.ER.24H PO SCH (20:43)
[2018-11-16 07:26] VITALS: BP 137/95
[2018-11-16] MEDS: FLUOXETINE HCL 20 MG CAPSULE PO SCH (08:58)
[2018-11-16] MEDS: SULFAMETH./TRIMETHOPRIM DS 800MG/160MG TABLET PO SCH ×2 (08:58→20:47)
[2018-11-16] MEDS: ARIPIPRAZOLE 15 MG TABLET PO SCH (08:58)
[2018-11-16] MEDS: NICOTINE 21 MG/24 HR PATCH.TD24 TD SCH (08:59)
[2018-11-16] MEDS: LORazepam 1MG TABLET PO PRN ×2 (13:00→20:47)
[2018-11-16] MEDS ORDERED: OLANZAPINE 5 MG TABLET ONE (15:58)
[2018-11-16] MEDS ORDERED: OLANZAPINE 5 MG TABLET PO ONE (16:00)
[2018-11-16 19:30] VITALS: BP 130/83
[2018-11-16] MEDS: TRIHEXYPHENIDYL 2MG TABLET PO SCH (20:47)
[2018-11-16] MEDS: DIVALPROEX 500 MG TAB.ER.24H PO SCH (20:48)
[2018-11-17 07:20] VITALS: BP 144/94
[2018-11-17] MEDS: SULFAMETH./TRIMETHOPRIM DS 800MG/160MG TABLET PO SCH (08:54)
[2018-11-17] MEDS: FLUOXETINE HCL 20 MG CAPSULE PO SCH (08:54)
[2018-11-17] MEDS: TRIHEXYPHENIDYL 2MG TABLET PO SCH (08:54)
[2018-11-17] MEDS: ARIPIPRAZOLE 15 MG TABLET PO SCH (08:54)
[2018-11-17] MEDS: LORazepam 1MG TABLET PO PRN (08:55)
[2018-11-17] MEDS: NICOTINE 21 MG/24 HR PATCH.TD24 TD SCH (08:55)
[2018-11-17] MEDS ORDERED: NICO-487 TD (11:09)
[2018-11-17] MEDS ORDERED: TRIH2TAB3 PO (11:09)
[2019-01-01] MEDS ORDERED: LURA120T PO (18:04)
[2019-01-01] MEDS ORDERED: NAPR-685 PO (18:04)
== END 2018-11-17 12:50 | disposition home or self-care (01) | DRG 750 ==
LOC: 3E 13:30
PROVIDERS: ADMIT Psychiatry & Neurology Psychosomatic Medicine; ATTEND Psychiatry & Neurology Psychosomatic Medicine
DX: F25.0 Schizoaffective disorder, bipolar type (principal); K92.2 Gastrointestinal hemorrhage, unspecified; J45.909 Unspecified asthma, uncomplicated; K21.9 Gastro-esophageal reflux disease without esophagitis; Z79.899 Other long term (current) drug therapy; Z88.1 Allergy status to other antibiotic agents; Z88.6 Allergy status to analgesic agent
CPT/HCPCS: 36415; 71045; 80053; 80061; 81001; 82140; 82607; 84439; 84443; 85025; 86592; 87077; 87086; 87186; 93005; 92522-GN

== ENCOUNTER 2018-11-18 12:32 | Emergency (ER) | payer MEDICAID ==
[~2018-11-18] VITALS: Ht 172.7 cm; Wt 83.0 kg
[~2018-11-18 12:32] MED LIST changes: +ARIP15TA3 PO; +BENZ2TAB6 PO; +NICO-487 TD; +TRIH2TAB3 PO
--- NOTE | 2018-11-18 12:35 | NUR ---
PT ARRIVED VIA [facility], AMBULATORY TO ROOM 38. PT DRESSED INTO GOWN AND BELONGINGS BAGGED AND REMOVED FROM ROOM. VSS. ROOM AIR. PT AAO X 4 BUT ARRIVES WITH C/O SI, PT STATES "I HAVE NO REAL PLAN BUT I KNOW MY MEDS ARE WRONG AND I NEED HELP." PER [facility], PT WAS D/C'D YESTERDAY AND REQUESTED TO RETURN TO [facility]. PT RESTING ON GURNEY WITH RAILS UP AND IN PLACE, RECIO CLOSED PER POLICY. ONE BAG OF BELONGINGS LABELED AND PLACED IN PSYCH LOCKER AND LOCKED BY [employer].
[2018-11-18 12:40] VITALS: BP 129/90
--- NOTE | 2018-11-18 12:45 | NUR ---
ONE BAG OF BELONGINGS PLACED IN PSYCH LOCKER AND LOCKED BY TECH.
--- NOTE | 2018-11-18 13:27 | NUR ---
THROUGHPUT RN: RUDOLPH PICHARDO [employer] ASSOCIATE AT BEDSIDE FOR EVAL.
--- NOTE | 2018-11-18 14:47 | NUR ---
PT REQUESTING TO MAKE PHONE CALL AND PER SEALS MD UPDATED, SW LEFT VM WITH PT'S [place], AWAITING CALL BACK. PT ALSO REQUESTING TO BE ADMITTED TO PSYCH FACILITY IN [facility].
[2018-11-18] MEDS ORDERED: LORazepam 1MG TABLET PO ONE (15:00)
--- NOTE | 2018-11-18 15:08 | NUR ---
PT REQUESTING TO LEAVE, UPDATED AND SAFE FOR D/C. Patient/Caregiver given discharge instructions and they have confirmed that they understand the instructions. Patient ambulatory with steady gait.
[2019-01-01] MEDS ORDERED: NAPR-685 PO (18:04)
[2019-01-01] MEDS ORDERED: LURA120T PO (18:04)
== END 2018-11-18 15:09 | disposition home or self-care (01) ==
LOC: ED 13:08
DX: F20.0 Paranoid schizophrenia (principal); K21.9 Gastro-esophageal reflux disease without esophagitis; F31.9 Bipolar disorder, unspecified; Z72.9 Problem related to lifestyle, unspecified
CPT/HCPCS: 99284

== ENCOUNTER 2019-04-13 00:22 | Emergency (ER) | payer MEDICAID ==
[~2019-04-13] VITALS: Ht 172.7 cm; Wt 97.3 kg
[~2019-04-13 00:22] MED LIST changes: +LURA120T PO; +NAPR-685 PO
--- NOTE | 2019-04-13 00:43 | NUR ---
PA AT BEDSIDE
--- NOTE | 2019-04-13 00:48 | NUR ---
PT MEDICATED PER JUN. PT RESTING ON [place]
--- NOTE | 2019-04-13 00:48 | NUR ---
PT STS SINCE I FLUSHED MY ANTIPSYCHOTICS I HAVE BEEN TAKING EXTRA DEPAKOTE
[2019-04-13] MEDS ORDERED: ONDANSETRON ODT 4 MG ONE (00:54)
[2019-04-13] MEDS ORDERED: FAMOTIDINE 20 MG TABLET ONE (00:54)
[2019-04-13] MEDS ORDERED: DIPHENHYDRAMINE 25 MG CAPSULE ONE (00:54)
[2019-04-13] MEDS ORDERED: DIPHENHYDRAMINE 25 MG CAPSULE PO ONE (01:00)
[2019-04-13] MEDS ORDERED: ONDANSETRON ODT 4 MG PO ONE (01:00)
[2019-04-13] MEDS ORDERED: FAMOTIDINE 20 MG TABLET PO ONE (01:00)
[2019-04-13 01:02] LABS: BASOPHILS # (AUTO) 0.06 x10^3/uL (0-0.1); BASOPHILS % (AUTO) 1 % (0-1); EOSINOPHILS # (AUTO) 0.13 x10^3/uL (0-0.4); EOSINOPHILS % (AUTO) 1 % (1-7); LYMPHOCYTES # (AUTO) 2.62 x10^3/uL (1-3.4); LYMPHOCYTES % (AUTO) 29 % (22-44); MD NO; MEAN CORPUSCULAR HEMOGLOBIN 25.4 pg (27.5-34.5); MEAN CORPUSCULAR HGB CONC 31.5 g/dL (33.2-36.2); MEAN CORPUSCULAR VOLUME 80.6 fL (81-97); MEAN PLATELET VOLUME 7.6 fL (7.4-10.4); MONOCYTES # (AUTO) 0.82 x10^3/uL (0.2-0.8); MONOCYTES % (AUTO) 9 % (2-9); NEUTROPHILS # (AUTO) 5.33 x10^3/uL (1.8-6.8); NEUTROPHILS % (AUTO) 60 % (42-75); PLATELET COUNT 318 x10^3/uL (130-400); RED BLOOD COUNT 4.98 x10^6/uL (4.38-5.82)
[2019-04-13 01:15] LABS: ALANINE AMINOTRANSFERASE 21 U/L (12-78); ALBUMIN 3.3 g/dL (3.4-5.0); ANION GAP 6 mmol/L (5-15); CALCIUM 8.4 mg/dL (8.5-10.1); CHLORIDE 106 mmol/L (98-107); CREATININE 1.32 mg/dL (0.7-1.3)
[2019-04-13 01:17] LABS: ALKALINE PHOSPHATASE 86 U/L (45-117); BILIRUBIN,TOTAL 0.4 mg/dL (0.2-1.0); TOTAL PROTEIN 7.1 g/dL (6.4-8.2)
[2019-04-13 01:49] VITALS: BP 126/87
--- NOTE | 2019-04-13 01:50 | NUR ---
ALL RESULTS BACK CHART UP FOR RECHECK
--- NOTE | 2019-04-13 01:50 | NUR ---
PT RESTING ON [facility] STS I STILL FEEL SICKER THAN A DOG, ASKS IF MORE TESTS WILL BE DONE.
== END 2019-04-13 02:25 | disposition home or self-care (01) ==
LOC: ED 00:54
DX: R10.84 Generalized abdominal pain (principal); R11.2 Nausea with vomiting, unspecified; L03.90 Cellulitis, unspecified; K21.9 Gastro-esophageal reflux disease without esophagitis
CPT/HCPCS: 36415; 80053; 83690; 85025; 99284; Q0162; Q0163

== ENCOUNTER 2019-05-04 15:59 | Emergency (ER) | payer MEDICAID ==
[~2019-05-04] VITALS: Ht 172.7 cm; Wt 90.9 kg
--- NOTE | 2019-05-04 16:01 | NUR ---
PT LIZA TEJEDA. EXPERIENCING AUDITORY AND VISUAL HALLUCINATIONS FOR A WEEK. STATES HIS PSYCHIATRIST RECENTLY CHANGED HIS MEDS. NOW TAKING ABILIFY, VISTARIL. PT CURRENTLY SPEAKING WITH PSYCH PIYUSH. SITTING ON GURNEY. MORRISON. ROOM SECURED.
[2019-05-04 16:13] VITALS: BP 115/87
--- NOTE | 2019-05-04 16:15 | NUR ---
PT AWARE OF POC. PT DENIES SI/HI. STATES HE IS WORRIED ABOUT GOING HOME BECAUSE OF THE HALLUCINATIONS SHE IS HAVING. CHANGING INTO A GOWN NOW AND PROVIDING A URINE SAMPLE.
[2019-05-04] MEDS ORDERED: HYDROXYZINE PAMOATE 50MG CAP PO PRN (16:30)
--- NOTE | 2019-05-04 16:33 | NUR ---
UA COLLECTED. PT IN GOWN RESTING ON [facility]. VSS. PROVIDED WITH DENTURE CUP, DENTURES PLACED INSIDE AND ARE NOW ON BEDSIDE TABLE. CALL LIGHT IN REACH. ROOM SECURE. PT REQUESTING MEDICATION THAT HAS BEEN PRESCRIBED. AWARE OF POC.
--- NOTE | 2019-05-04 16:34 | NUR ---
THROUGHPUT RN: 3E U NOTIFIED OF PT IN ED ON LEGAL HOLD
[2019-05-04] MEDS ORDERED: RISPERIDONE (16:38)
[2019-05-04] MEDS ORDERED: ABILIFY (16:38)
[2019-05-04] MEDS ORDERED: VISTARIL (16:38)
[2019-05-04] MEDS ORDERED: hydrOXyzine 50MG TABLET ONE (16:40)
[2019-05-04] MEDS ORDERED: DIVALPROEX 500 MG TAB.ER.24H ONE (16:40)
[2019-05-04] MEDS ORDERED: ZIPRASIDONE 20MG CAPSULE ONE (16:40)
--- NOTE | 2019-05-04 16:45 | NUR ---
DINNER TRAY ORDERED FOR PT.
--- NOTE | 2019-05-04 16:45 | NUR ---
PT MEDICATED PER EMAR. RESTING ON GURNEY. NADN. VSS.
[2019-05-04 16:46] LABS: MICROSCOPIC NOT IND
[2019-05-04 16:48] LABS: CULTURE INDICATED? NO
[2019-05-04 16:50] LABS: BASOPHILS # (AUTO) 0.06 x10^3/uL (0-0.1); BASOPHILS % (AUTO) 1 % (0-1); EOSINOPHILS # (AUTO) 0.06 x10^3/uL (0-0.4); EOSINOPHILS % (AUTO) 1 % (1-7); LYMPHOCYTES # (AUTO) 2.56 x10^3/uL (1-3.4); LYMPHOCYTES % (AUTO) 36 % (22-44); MD NO; MEAN CORPUSCULAR HEMOGLOBIN 24.9 pg (27.5-34.5); MEAN CORPUSCULAR HGB CONC 32.3 g/dL (33.2-36.2); MEAN CORPUSCULAR VOLUME 77.1 fL (81-97); MEAN PLATELET VOLUME 7.8 fL (7.4-10.4); MONOCYTES # (AUTO) 0.54 x10^3/uL (0.2-0.8); MONOCYTES % (AUTO) 8 % (2-9); NEUTROPHILS # (AUTO) 3.95 x10^3/uL (1.8-6.8); NEUTROPHILS % (AUTO) 55 % (42-75); PLATELET COUNT 356 x10^3/uL (130-400); RED BLOOD COUNT 5.25 x10^6/uL (4.38-5.82); RED CELL DISTRIBUTION WIDTH 20.2 % (9.4-14.8)
[2019-05-04 17:00] LABS: AMPHETAMINE SCREEN, URINE Negative (Negative); BARBITURATE SCREEN, URINE Negative (Negative); BENZODIAZEPINE SCREEN, URINE Negative (Negative); CANNABINOID SCREEN, URINE Negative (Negative); COCAINE SCREEN, URINE Negative (Negative); METHADONE SCREEN, URINE Negative (Negative); OPIATE SCREEN, URINE Negative (Negative)
[2019-05-04 17:02] LABS: ALANINE AMINOTRANSFERASE 12 U/L (12-78); ALBUMIN 3.3 g/dL (3.4-5.0); ANION GAP 7 mmol/L (5-15); CALCIUM 8.6 mg/dL (8.5-10.1); CHLORIDE 102 mmol/L (98-107); CREATININE 1.15 mg/dL (0.7-1.3); SALICYLATE LEVEL 3.5 mg/dL (2.8-20.0)
[2019-05-04 17:11] LABS: ALKALINE PHOSPHATASE 110 U/L (45-117); BILIRUBIN,TOTAL 0.5 mg/dL (0.2-1.0); TOTAL PROTEIN 7.3 g/dL (6.4-8.2)
--- NOTE | 2019-05-04 17:39 | NUR ---
PT PROVIDED WITH DINNER TRAY. DENIES FURTHER NEEDS.
--- NOTE | 2019-05-04 17:57 | NUR ---
ROOM SECURE. SITTER AT BEDSIDE. PT RESTING ON GURKATH. NADN. DENIES NEEDS.
--- NOTE | 2019-05-04 18:10 | NUR ---
THROUGHPUT RN: PACKET FAXED TO [facility], AND [facility].
--- NOTE | 2019-05-04 18:52 | NUR ---
REPORT FROM KEHINDE OLIVAREZ, ASSUMING CARE OF PT AT THIS TIME
--- NOTE | 2019-05-04 19:55 | NUR ---
PT [facility] VIA WITH ALL BELONGINGS FROM SECURE LOCKER. PT HAD 2 BELONGINGS BAGS AND A LUGGAGE BAG.
[2019-05-04] MEDS ORDERED: DIVALPROEX 500 MG TAB.ER.24H PO SCH (21:00)
[2019-05-04] MEDS ORDERED: ZIPRASIDONE 20MG CAPSULE PO SCH (21:00)
[2019-05-04] MEDS ORDERED: DIVA500T4 PO (23:44)
== END 2019-05-04 20:13 ==
LOC: ED 16:37
DX: F23 Brief psychotic disorder (principal); F22 Delusional disorders; K21.9 Gastro-esophageal reflux disease without esophagitis; J45.909 Unspecified asthma, uncomplicated
CPT/HCPCS: 36415; 80053; 80164; 80307; 81003; 84443; 85025; 99285

== ENCOUNTER 2019-05-04 18:38 | Inpatient (IN) | payer MEDICAID ==
[~2019-05-04] VITALS: Ht 172.7 cm; Wt 86.5 kg
[~2019-05-04 18:38] MED LIST changes: +ABILIFY; +RISPERIDONE; +VISTARIL
[2019-05-04] MEDS ORDERED: ONDANSETRON ODT 4 MG PO PRN (19:00)
[2019-05-04] MEDS ORDERED: POLYETHYLENE GLYCOL 17 GM PACKET PO PRN (19:00)
[2019-05-04] MEDS ORDERED: BISACODYL 10 MG SUPP PR PRN (19:00)
[2019-05-04] MEDS ORDERED: DOCUSATE 100 MG CAPSULE PO PRN (19:00)
[2019-05-04 19:30] LABS: CHOL/HDL RATIO 8.7; FREE T4 (FREE THYROXINE) 0.92 ng/dL (0.76-1.46)
[2019-05-04] MEDS ORDERED: PLEASE ENTER HEIGHT AND WEIGHT MC SCH (20:30)
[2019-05-04] MEDS: ZOLPIDEM 5MG TABLET PO SCH (21:55)
[2019-05-04] MEDS: DIVALPROEX 500 MG TAB.ER.24H PO SCH (21:55)
[2019-05-04] MEDS: ZIPRASIDONE 20MG CAPSULE PO SCH (21:55)
[2019-05-04 23:00] VITALS: BP 130/90
[2019-05-04] MEDS ORDERED: DIVA500T4 PO (23:44)
[2019-05-05 07:39] VITALS: BP 110/72
[2019-05-05] MEDS: ZIPRASIDONE 20MG CAPSULE PO SCH ×2 (08:03→20:18)
[2019-05-05] MEDS: HYDROXYZINE PAMOATE 50MG CAP PO PRN ×2 (08:03→16:27)
[2019-05-05] MEDS: BUDESONIDE 0.5 MG/2 ML INHA INH SCH ×2 (09:00→21:00)
[2019-05-05] MEDS: ALBUTEROL SULFATE 2.5 MG/3 ML NPPB PRN (16:54)
[2019-05-05 19:41] VITALS: BP 111/76
[2019-05-05] MEDS: ZOLPIDEM 5MG TABLET PO SCH (20:18)
[2019-05-05] MEDS: DIVALPROEX 500 MG TAB.ER.24H PO SCH (20:18)
[2019-05-05] MEDS: ACETAMINOPHEN 325 MG TABLET PO PRN (20:22)
[2019-05-06 07:39] VITALS: BP 123/82
[2019-05-06] MEDS: ZIPRASIDONE 20MG CAPSULE PO SCH ×2 (08:24→20:17)
[2019-05-06] MEDS: BUDESONIDE 0.5 MG/2 ML INHA INH SCH ×2 (09:15→20:35)
[2019-05-06] MEDS: ACETAMINOPHEN 325 MG TABLET PO PRN (11:30)
[2019-05-06] MEDS: HYDROXYZINE PAMOATE 50MG CAP PO PRN (13:12)
[2019-05-06] MEDS: NICOTINE 21 MG/24 HR PATCH.TD24 TD SCH (17:30)
[2019-05-06 19:39] VITALS: BP 143/91
[2019-05-06] MEDS: ZOLPIDEM 5MG TABLET PO SCH (20:16)
[2019-05-06] MEDS: DIVALPROEX 500 MG TAB.ER.24H PO SCH (20:16)
[2019-05-06] MEDS: ALBUTEROL SULFATE 2.5 MG/3 ML NPPB PRN (20:35)
[2019-05-07] MEDS: ACETAMINOPHEN 325 MG TABLET PO PRN ×4 (05:13→19:57)
[2019-05-07 07:34] VITALS: BP 150/107
[2019-05-07] MEDS: ZIPRASIDONE 20MG CAPSULE PO SCH ×2 (08:15→20:56)
[2019-05-07] MEDS: BUDESONIDE 0.5 MG/2 ML INHA INH SCH ×2 (08:30→20:46)
[2019-05-07 09:00] VITALS: BP 148/91
[2019-05-07 10:24] LABS: BASOPHILS # (AUTO) 0.03 x10^3/uL (0-0.1); BASOPHILS % (AUTO) 1 % (0-1); EOSINOPHILS # (AUTO) 0.04 x10^3/uL (0-0.4); EOSINOPHILS % (AUTO) 1 % (1-7); LYMPHOCYTES % (AUTO) 24 % (22-44); MD NO; MEAN CORPUSCULAR HEMOGLOBIN 24.9 pg (27.5-34.5); MEAN CORPUSCULAR VOLUME 77.8 fL (81-97); MEAN PLATELET VOLUME 8.1 fL (7.4-10.4); MONOCYTES % (AUTO) 9 % (2-9); NEUTROPHILS % (AUTO) 66 % (42-75); PLATELET COUNT 346 x10^3/uL (130-400); RED BLOOD COUNT 5.17 x10^6/uL (4.38-5.82); RED CELL DISTRIBUTION WIDTH 20.8 % (9.4-14.8)
[2019-05-07 10:30] VITALS: BP 155/101
[2019-05-07 10:30] LABS: ALANINE AMINOTRANSFERASE 9 U/L (12-78); ALBUMIN 3.2 g/dL (3.4-5.0); ANION GAP 9 mmol/L (5-15); CALCIUM 8.6 mg/dL (8.5-10.1); CHLORIDE 104 mmol/L (98-107); CREATININE 1.34 mg/dL (0.7-1.3)
[2019-05-07 10:32] LABS: ALKALINE PHOSPHATASE 107 U/L (45-117); BILIRUBIN,TOTAL 0.4 mg/dL (0.2-1.0)
[2019-05-07] MEDS: NICOTINE 21 MG/24 HR PATCH.TD24 TD SCH (10:56)
[2019-05-07] MEDS: HYDROXYZINE PAMOATE 50MG CAP PO PRN ×2 (11:08→19:57)
[2019-05-07 11:35] LABS: MICROSCOPIC NOT IND
[2019-05-07 11:38] LABS: CULTURE INDICATED? NO
[2019-05-07 12:14] VITALS: BP 115/71
[2019-05-07] MEDS ORDERED: SODIUM CHLORIDE 0.9% 1,000ML IVBOLUS ONE (12:30)
[2019-05-07] MEDS: VANCOMYCIN 50 MG/ML ORAL SUSP PO SCH ×2 (12:30→18:30)
[2019-05-07 13:13] LABS: C-REACTIVE PROTEIN, QUANT 0.06 mg/dL (0.02-0.49)
[2019-05-07 13:15] VITALS: BP 117/90
[2019-05-07 13:58] LABS: HCT (SEDRATE) 40.2 % (39.2-51.8)
[2019-05-07 19:00] VITALS: BP 134/83
[2019-05-07] MEDS: ZOLPIDEM 5MG TABLET PO SCH (20:56)
[2019-05-07] MEDS: DIVALPROEX 500 MG TAB.ER.24H PO SCH (20:56)
[2019-05-08] MEDS: ZIPRASIDONE 20MG CAPSULE PO PRN ×2 (00:02→20:30)
[2019-05-08] MEDS: VANCOMYCIN 50 MG/ML ORAL SUSP PO SCH ×4 (00:30→18:30)
[2019-05-08 07:26] VITALS: BP_SYST 124; BP_SYST 133; BP_DIAS 74; BP_DIAS 93
[2019-05-08] MEDS: NICOTINE 21 MG/24 HR PATCH.TD24 TD SCH (08:30)
[2019-05-08] MEDS: ZIPRASIDONE 20MG CAPSULE PO SCH ×3 (08:30→20:19)
[2019-05-08] MEDS: BUDESONIDE 0.5 MG/2 ML INHA INH SCH ×3 (11:10→21:09)
[2019-05-08 19:41] VITALS: BP 130/80
[2019-05-08] MEDS: DIVALPROEX 500 MG TAB.ER.24H PO SCH (20:19)
[2019-05-08] MEDS: ZOLPIDEM 5MG TABLET PO SCH (20:19)
[2019-05-09] MEDS: VANCOMYCIN 50 MG/ML ORAL SUSP PO SCH ×4 (00:30→18:32)
[2019-05-09] MEDS: HYDROXYZINE PAMOATE 50MG CAP PO PRN ×4 (06:48→20:00)
[2019-05-09 07:28] VITALS: BP 126/77
[2019-05-09] MEDS: NICOTINE 21 MG/24 HR PATCH.TD24 TD SCH (08:20)
[2019-05-09] MEDS: ZIPRASIDONE 20MG CAPSULE PO SCH ×2 (08:20→19:59)
[2019-05-09] MEDS: BUDESONIDE 0.5 MG/2 ML INHA INH SCH (09:40)
[2019-05-09] MEDS: ZIPRASIDONE 20MG CAPSULE PO PRN (14:51)
[2019-05-09] MEDS ORDERED: ZIPR20CA2 PO (15:43)
[2019-05-09] MEDS ORDERED: NICO-487 TD (15:43)
[2019-05-09] MEDS ORDERED: HYDR50CA2 PO (15:43)
[2019-05-09] MEDS ORDERED: DIVA500T4 PO (15:43)
[2019-05-09 19:38] VITALS: BP 111/84
[2019-05-09] MEDS: ZOLPIDEM 5MG TABLET PO SCH (19:59)
[2019-05-09] MEDS: ACETAMINOPHEN 325 MG TABLET PO PRN (20:00)
[2019-05-09] MEDS: DIVALPROEX 500 MG TAB.ER.24H PO SCH (20:00)
[2019-05-10] MEDS: VANCOMYCIN 50 MG/ML ORAL SUSP PO SCH ×2 (01:20→06:02)
[2019-05-10] MEDS: ZIPRASIDONE 20MG CAPSULE PO PRN (04:01)
[2019-05-10] MEDS: HYDROXYZINE PAMOATE 50MG CAP PO PRN (05:57)
[2019-05-10 07:38] VITALS: BP 138/104
[2019-05-10] MEDS: ZIPRASIDONE 20MG CAPSULE PO SCH (08:20)
[2019-05-10] MEDS: NICOTINE 21 MG/24 HR PATCH.TD24 TD SCH (08:20)
[2019-05-10] MEDS: BUDESONIDE 0.5 MG/2 ML INHA INH SCH (09:00)
== END 2019-05-10 10:37 | disposition home or self-care (01) | DRG 750 ==
LOC: 3E 20:20
PROVIDERS: ADMIT Psychiatry & Neurology Psychosomatic Medicine; ATTEND Psychiatry & Neurology Psychosomatic Medicine
DX: F25.0 Schizoaffective disorder, bipolar type (principal); K92.2 Gastrointestinal hemorrhage, unspecified; D53.9 Nutritional anemia, unspecified; E78.5 Hyperlipidemia, unspecified; F17.210 Nicotine dependence, cigarettes, uncomplicated; F23 Brief psychotic disorder; G89.29 Other chronic pain; J45.909 Unspecified asthma, uncomplicated; Z81.8 Family history of other mental and behavioral disorders; Z91.5 Personal history of self-harm
CPT/HCPCS: 36415; 71045; 74018; 76700; 80053; 80061; 81003; 83690; 84439; 85025; 85651; 86140; 93005; 94640; J3370; J7613; J7626

== ENCOUNTER 2019-06-02 13:36 | Emergency (ER) | payer MEDICAID ==
[~2019-06-02] VITALS: Ht 175.3 cm; Wt 90.4 kg
[~2019-06-02 13:36] MED LIST changes: +HYDR50CA2 PO; +ZIPR20CA2 PO
[2019-06-02 13:43] VITALS: BP 139/105
--- NOTE | 2019-06-02 13:57 | NUR ---
PT C/O LOWER ABD PAIN X1 MONTH AND DECREASED APPETITIE. CONNECTED TO MONITORING. CALL LIGHT IN REACH. MD AT BEDSIDE FOR ASSESSMENT.
--- NOTE | 2019-06-02 14:20 | NUR ---
PT AMBULATED TO RESTROOM AND BACK TO ROOM WITH STEADY GAIT, TO PROVIDE URINE SAMPLE. UA COLLECTED AND SENT TO LAB. LAB AT BEDSIDE.
[2019-06-02 14:30] LABS: MICROSCOPIC NOT IND
[2019-06-02 14:31] LABS: BASOPHILS # (AUTO) 0.04 x10^3/uL (0-0.1); BASOPHILS % (AUTO) 1 % (0-1); EOSINOPHILS # (AUTO) 0.11 x10^3/uL (0-0.4); EOSINOPHILS % (AUTO) 2 % (1-7); LYMPHOCYTES # (AUTO) 2.27 x10^3/uL (1-3.4); LYMPHOCYTES % (AUTO) 36 % (22-44); MD NO; MEAN CORPUSCULAR HEMOGLOBIN 25.6 pg (27.5-34.5); MEAN CORPUSCULAR HGB CONC 32.2 g/dL (33.2-36.2); MEAN CORPUSCULAR VOLUME 79.5 fL (81-97); MEAN PLATELET VOLUME 8.5 fL (7.4-10.4); MONOCYTES # (AUTO) 0.61 x10^3/uL (0.2-0.8); MONOCYTES % (AUTO) 10 % (2-9); NEUTROPHILS # (AUTO) 3.32 x10^3/uL (1.8-6.8); NEUTROPHILS % (AUTO) 52 % (42-75); PLATELET COUNT 290 x10^3/uL (130-400); RED BLOOD COUNT 5.12 x10^6/uL (4.38-5.82); RED CELL DISTRIBUTION WIDTH 21.2 % (9.4-14.8)
[2019-06-02 14:34] LABS: CULTURE INDICATED? NO
[2019-06-02 14:38] LABS: ALANINE AMINOTRANSFERASE 21 U/L (12-78); ALBUMIN 3.2 g/dL (3.4-5.0); ANION GAP 5 mmol/L (5-15); CALCIUM 8.3 mg/dL (8.5-10.1); CHLORIDE 102 mmol/L (98-107); CREATININE 1.14 mg/dL (0.7-1.3)
[2019-06-02 14:40] LABS: ALKALINE PHOSPHATASE 133 U/L (45-117); BILIRUBIN,TOTAL 0.4 mg/dL (0.2-1.0); TOTAL PROTEIN 7.1 g/dL (6.4-8.2)
--- NOTE | 2019-06-02 14:49 | NUR ---
ALL RESULTS ARE BACK AT THIS TIME. CHART UP FOR RECHECK.
--- NOTE | 2019-06-02 15:04 | NUR ---
PT GIVEN JUICE AND CRACKERS FOR PO CHALLENGE.
--- NOTE | 2019-06-02 15:16 | NUR ---
PT TOLERATED JUICE AND CRACKERS.
== END 2019-06-02 15:19 | disposition home or self-care (01) ==
LOC: ED 15:13
DX: R10.84 Generalized abdominal pain (principal)
CPT/HCPCS: 36415; 80053; 81003; 83690; 85025; 99283

== ENCOUNTER 2019-12-25 14:07 | Emergency (ER) | payer MEDICAID ==
[~2019-12-25] VITALS: Ht 172.7 cm; Wt 92.9 kg
[2019-12-25] MEDS ORDERED: ALBUTEROL/IPRATROPIUM 2.5MG/0.5MG, 3 ML ONE (14:40)
[2019-12-25 14:54] VITALS: BP 147/97
[2019-12-25] MEDS ORDERED: ALBUTEROL/IPRATROPIUM 2.5MG/0.5MG, 3 ML NPPB ONE (15:00)
--- NOTE | 2019-12-25 15:02 | NUR ---
Pt reports sob and not feeling well. Pt reports that he ran out of his ventolin and does not have a pcp so does not get refills unless he comes to the ER. Pt reports he smokes 1/2 pack a day would smoke more but has to make them last since he lives [place]. Pt reports he thinks he has covid as well. Pt has some expiratory wheezing. Pt reports that he has trouble walking long distances.
--- NOTE | 2019-12-25 16:32 | NUR ---
Patient/Caregiver given discharge instructions and they have confirmed that they understand the instructions. Patient ambulatory with steady gait.
== END 2019-12-25 16:34 | disposition home or self-care (01) ==
LOC: ED 16:00
DX: J45.41 Moderate persistent asthma with (acute) exacerbation (principal); R05 Cough; R06.02 Shortness of breath; K21.9 Gastro-esophageal reflux disease without esophagitis; F17.200 Nicotine dependence, unspecified, uncomplicated
CPT/HCPCS: 71045; 93005; 94640; 99283; J7512

== ENCOUNTER 2020-07-06 17:34 | Emergency (ER) | payer MEDICAID ==
[~2020-07-06] VITALS: Ht 165.1 cm; Wt 80.9 kg
[~2020-07-06 17:34] MED LIST changes: -NICO-487 TD; +NICO-587 TD
[2020-07-06 17:41] VITALS: BP 140/104
--- NOTE | 2020-07-06 17:49 | NUR ---
BIB [facility]. PT WITH C/O ABD DISCOMFORT AND NAUSEA FOR APPOX 6 DAYS NOW. PER PT HE HAD SOME EMMANUEL CHICKALOON PIE 1 WEEK AGO AND HAS BEEN "UNCOMFORTABLE" SINCE. DENIES V/D. PT TO BP, CONT PULSE OX. AWAITING MIKKI TAYLOR.
[2020-07-06] MEDS ORDERED: ONDANSETRON ODT 4 MG PO ONE (18:30)
[2020-07-06] MEDS ORDERED: ONDANSETRON ODT 4 MG ONE (18:39)
--- NOTE | 2020-07-06 18:43 | NUR ---
PT MEDICATED PER MAR, BACK FROM IMAGING. HR REMAINS ELEVATED, BOLUS INFUSING. ERP UPDATED.
--- NOTE | 2020-07-06 19:14 | NUR ---
RN WENT TO HAND DISCHARGE PAPERWORK TO PT AND HE WAS GONE FROM ROOM.
== END 2020-07-06 19:16 | disposition home or self-care (01) ==
LOC: ED 18:28
DX: R10.84 Generalized abdominal pain (principal); K59.00 Constipation, unspecified; R63.0 Anorexia; R11.0 Nausea; F17.210 Nicotine dependence, cigarettes, uncomplicated; E78.00 Pure hypercholesterolemia, unspecified; J45.909 Unspecified asthma, uncomplicated; Z88.8 Allergy status to other drugs, medicaments and biological substances; Z88.0 Allergy status to penicillin; Z88.2 Allergy status to sulfonamides; Z68.29 Body mass index [BMI] 29.0-29.9, adult
CPT/HCPCS: 74021; 99283; Q0162